=== PATIENT | female | born 1990 | race Asian ===

== ENCOUNTER 2019-09-13 03:47 | Emergency (ER) | payer OTHER ==
[~2019-09-13] VITALS: Ht 167.6 cm; Wt 54.0 kg
[2019-09-13] MEDS ORDERED: SODIUM CHLORIDE 0.9% 1,000 ML IV ONE (04:31)
[2019-09-13] MEDS ORDERED: ONDANSETRON 4MG ODT PO ONE (05:15)
[2019-09-13 05:17] LABS: CLARITY URINE CLEAR (CLEAR); COLOR URINE DARK YELLOW (YELLOW); KETONES URINE 4+ (NEGATIVE); LEUKOCYTE ESTERASE URINE NEGATIVE (NEGATIVE); NITRITE URINE NEGATIVE (NEGATIVE); OCCULT BLOOD URINE NEGATIVE (NEGATIVE); PH URINE 5.5 (4.5-8.0); PROTEIN URINE TRACE (NEGATIVE); SPECIFIC GRAVITY URINE 1.032 (1.005-1.030); UROBILINOGEN URINE 0.2 E.U./dL (0.2-1.0)
[2019-09-13 05:23] LABS: HEMATOCRIT. 45.8 % (36.0-48.0); HEMOGLOBIN. 15.9 g/dL (12.0-16.0); MEAN CORPUSCULAR HEMOGLOBIN 31.8 pg (28.0-32.0); MEAN CORPUSCULAR VOLUME 91.4 fL (81.0-99.0); MEAN PLATELET VOLUME 8.7 fl (7.4-10.4); PLATELET 182 x1000/uL (130-400); RED CELL DISTRIBUTION WIDTH 12.5 % (11.6-14.6)
[2019-09-13 05:32] LABS: CHLORIDE 108 mEq/L (98-107)
[2019-09-13 06:30] VITALS: BP 110/60
[2019-09-13 07:06] LABS: PLATELET ESTIMATE NORMAL
== END 2019-09-13 06:31 | disposition home or self-care (01) ==
LOC: EDBD 03:47 → ER 03:47
DX: R11.2 Nausea with vomiting, unspecified (principal); R19.7 Diarrhea, unspecified; E86.0 Dehydration
CPT/HCPCS: 36415; 80053; 81003; 81025; 83605; 83690; 85025; 96360; 99283; J7030; Q0162